=== PATIENT | female | born 1960 | race Caucasian/White ===

== ENCOUNTER 2021-03-16 19:40 | Observation (INO) ==
[2021-03-16] MEDS ORDERED: ACETAMINOPHEN 1,000 MG/100 ML VIAL IV STA (20:51)
[2021-03-16] MEDS ORDERED: SODIUM CHLORIDE 0.9% 1000ML 1,000 ML IV ONE (20:51)
[2021-03-16 21:15] LABS: Basophils # (auto) 0.02 K/uL (0-0.2); Basophils % (auto) 0.2 %; Eosinophils # (auto) 0.09 K/uL (0-0.5); Eosinophils % (auto) 0.9 %; Hematocrit (blood only) 44.9 % (37-47); Hemoglobin 15.2 g/dL (12.0-16.0); Immature Granulocytes # (auto) 0.02 K/uL (0.00-0.02); Immature Granulocytes % (auto) 0.2 %; Lymphocytes # (auto) 2.06 K/uL (1.2-3.4); Lymphocytes % (auto) 20.5 %; Mean Corpuscular Hemoglobin 30.6 pg (25-34); Mean Corpuscular Hgb Conc 33.9 g/dL (32-36); Mean Corpuscular Volume 90.5 fL (80-100); Mean Platelet Volume 9.4 fL (7.4-10.4); Monocytes # (auto) 0.73 K/uL (0.11-0.59); Monocytes % (auto) 7.3 %; Neutrophils # (auto) 7.14 K/uL (1.4-6.5); Neutrophils % (auto) 70.9 %; Platelet Count 338 K/uL (130-400); RDW Coefficient of Variation 13.2 % (11.5-14.5); RDW Standard Deviation 43.6 fL (36.4-46.3); Red Blood Count 4.96 M/uL (4.2-5.4); White Blood Count 10.06 K/uL (4.8-10.8)
[2021-03-16 21:37] LABS: Albumin Level 4.1 gm/dl (3.4-5.0); BUN Creatinine Ratio 13.7 (10-20); Bilirubin Direct 0.2 mg/dl (0-0.2); Calcium 9.2 mg/dl (8.5-10.1); Creatinine Clr Calc Pharmacy 75.7 ml/min; Est GFR (African American) 74.6 ml/min; Est GFR (Non-African American) 64.4 ml/min; Potassium 3.8 mmol/L (3.5-5.1)
[2021-03-16 21:40] LABS: Albumin Globulin Ratio 1.1 (0.9-2); Bilirubin,Total 0.8 mg/dl (0.2-1); Globulin 3.9 gm/dl (2.5-4.0)
[2021-03-16 22:26] LABS: Appearance Urine Clear (Clear); Bacteria Urine Automated Negative (Negative); Bilirubin Urine Negative (Negative); Blood Urine Negative (Negative); Color Urine Yellow; Epithelial Cell Urine Auto 20-30 /lpf (0-5); Glucose Urine UA Negative (Negative); Ketones Urine Trace (Negative); Leukocyte Esterase Urine Trace (Negative); Nitrite Urine Negative (Negative); Protein Urine Negative (Negative); RBC Urine Automated 0-4 /hpf (0-4); Specific Gravity Urine 1.015 (1.000-1.030); Urobilinogen Urine Negative (Negative)
[2021-03-16] MEDS ORDERED: OPTIRAY 320 100ml IV ONE (22:33)
[2021-03-16] MEDS ORDERED: cefOXitin 2,000 MG/60 ML BAG IV STA (23:21)
--- NOTE | 2021-03-17 00:18 | Surgery Consultation ---
Date of Consultation March 17, 2021 Assessment & Plan (1) Acute appendicitis with localized peritonitis: pt is a 60 year-old female who presents to ER with one day history RLQ pain, IMP: acute appendicitis, plan, I recommend to do laparoscopic appendectomy, possible open, D/W benefits, risk and alternatives of the surgery, the risks - infection, bleeding, abscess, injury other organs, incisional hernia, bowel obstruction, pt understood, she agrees with the surgery, I answered all questions, pre-op antibiotic, C)VID-19 test, Present on Admission?: Yes History of Present Illness History of Present Illness CC: RLQ pain HPI: pt is a 60 year-old female who presents to ER with one day history RLQ pain, the pain is located at RLQ, 8/10, with some nausea, no vomiting, pt denies fever, no diarrhea, pt had gastric bypass 20 years ago, pt had CT scan at ER- diagnosis- acute appendicitis, Allergies Allergy/AdvReac Type Severity Reaction Status Date / Time sulfamethoxazole AdvReac Intermediate Vomiting Verified 03/16/21 21:47 [From Bactrim] trimethoprim [From Bactrim] AdvReac Intermediate Vomiting Verified 03/16/21 21:47 Home Medications Medication Instructions Recorded Confirmed Type biotin 1,000 mcg PO DAILY 03/16/21 03/16/21 History calcium carbonate-vitamin D3 1 tab PO DAILY 03/16/21 03/16/21 History [Caltrate 600 plus D] cholecalciferol (vitamin D3) 50 mcg PO DAILY 03/16/21 03/16/21 History [Vitamin D3] cyanocobalamin (vitamin B-12) 1,000 mcg SUBLINGUAL DAILY 03/16/21 03/16/21 History [Vitamin B-12] multivit with min-folic acid 200 tab PO DAILY 03/16/21 03/16/21 History [Adult Multivitamin Gummies] Patient History Social History Smoking Status: Never smoker Feels Safe at Home: Yes Review of Systems Review of Systems: All systems reviewed & are unremarkable except as noted in HPI & below Constitutional: as per Subjective / HPI obesity Eyes: as per Subjective / HPI Ear, Nose, Mouth, Throat: as per Subjective / HPI Respiratory: as per Subjective / HPI Cardiovascular: as per Subjective / HPI Gastrointestinal: as per Subjective / HPI gastric bypass 20 years ago Genitourinary: as per Subjective / HPI Musculoskeletal: as per Subjective / HPI Integumentary: as per Subjective / HPI Neurologic: as per Subjective / HPI Psychiatric: as per Subjective / HPI Endocrine: as per Subjective / HPI Hematologic / Lymphatic: as per Subjective / HPI Allergy / Immunological: as per Subjective / HPI Physical Exam Constitutional: WD/WN, vitals as above well developed and well nourished Eyes: PERRL, conjunctivae normal, anicteric sclerae ENMT: external ear and nose normal, oropharynx normal Neck: trachea midline, no thyromegaly Respiratory: normal respiratory effort, lungs clear to auscultation normal respiratory effort Cardiovascular: RRR, no murmur, no edema Rate/Rhythm: regular rate and regular rhythm Heart Sounds: normal S1 and normal S2 Gastrointestinal (Abdomen): Percussion/Palpation: + abdomen tender, + guarding and abdomen soft tenderness at RLQ, rebound pain -, no distend, BS + Musculoskeletal: no cyanosis or clubbing, extremities motor strength 5/5 Skin: no rashes, warm and dry Neurologic: awake Psychiatric: Orientation: alert and oriented x 3 Results & Data ([facility]) Vital Signs (Past 12 Hours) Vital Signs Temp Pulse Pulse Resp BP BP Pulse Ox 03/16/21 23:47 63 20 155/102 H 99 03/16/21 22:00 67 18 151/95 H 99 03/16/21 20:58 74 18 154/97 H 98 03/16/21 20:52 87 18 97 03/16/21 19:53 36.7 C 100 H 18 148/112 H 94 Laboratory Results Abnormal lab results 03/16/21 03/16/21 03/16/21 Range/Units 20:49 20:49 22:08 Neut # (Auto) 7.14 H (1.4-6.5) K/uL Todd # (Auto) 0.73 H (0.11-0.59) K/uL Alkaline Phosphatase 130 H (45-117) U/L Urine Ketones Trace H (Negative) Ur Leukocyte Esterase Trace H (Negative) Urine WBC (Auto) 5-10 H (0-5) /hpf U Epithel Cells (Auto) 20-30 H (0-5) /lpf Diagnostic Findings CT scan- acute appendicitis,
--- NOTE | 2021-03-17 00:18 | History & Physical Bridge Note ---
Date of Service March 17, 2021 History & Physical Bridge Note I have examined the patient, reviewed the History & Physical and in the interval since the performance of the History & Physical I have noted the following changes of clinical significance: no changes noted
[2021-03-17] MEDS ORDERED: fentaNYL citrate 100 MCG/2 ML VIAL ONE (01:07)
[2021-03-17] MEDS ORDERED: BUPIVACAINE 0.5 % 5 MG/1 ML MPF 30ML VIAL ONE (01:08)
[2021-03-17] MEDS ORDERED: SUCCINYLCHOLINE CHLORIDE 20 MG/ML 10 ML VIAL IV ONE (01:09)
[2021-03-17] MEDS ORDERED: BACITRACIN OINT 15 GM TUBE ONE (01:09)
[2021-03-17] MEDS ORDERED: LIDOCAINE 1% LOCAL 20 ML VIAL ONE (01:09)
[2021-03-17] MEDS ORDERED: GLYCOPYRROLATE 0.2 MG/ML VIAL ONE (01:10)
[2021-03-17] MEDS ORDERED: LIDOCAINE 2% 2 ML VIAL/AMP(20MG/ML) INFIL ONE (01:10)
[2021-03-17] MEDS ORDERED: ROCURONIUM BROMIDE 10 MG/ML 5 ML VIAL IV ONE (01:10)
[2021-03-17] MEDS ORDERED: DEXAMETHASONE SOD INJ 4 MG/ML VIAL ONE (01:10)
[2021-03-17] MEDS ORDERED: NEOSTIGMINE METHYLSULFATE 1 MG/ML 10ML VIAL ONE (01:10)
[2021-03-17] MEDS ORDERED: ONDANSETRON INJ 2 MG/ML 2 ML VIAL ONE (01:10)
[2021-03-17] MEDS ORDERED: ONDANSETRON INJ 2 MG/ML 2 ML VIAL IV PRN ×2 (01:21→03:18)
[2021-03-17] MEDS ORDERED: ePHEDrine sulfate 50 MG/ML AMP IV PRN (01:21)
[2021-03-17] MEDS ORDERED: LABETALOL HCL IV 5 MG/ML 20ML IV PRN (01:21)
[2021-03-17] MEDS ORDERED: fentaNYL citrate 100 MCG/2 ML VIAL IV PRN (01:21)
[2021-03-17] MEDS ORDERED: HYDROmorphone INJ 1 MG/ML SYRINGE IV PRN ×2 (01:21→04:36)
[2021-03-17] MEDS ORDERED: MEPERIDINE HCL 25 MG/ML CARP/VIAL IV PRN (01:21)
[2021-03-17] MEDS ORDERED: PHENYLEPHRINE 100MCG/ML 5ML SYR IV PRN (01:21)
[2021-03-17] MEDS ORDERED: ATROPINE SULFATE 0.1 MG/ML 10ML SYR IV PRN (01:21)
--- NOTE | 2021-03-17 01:31 | Anesthesiology Consultation ---
Date of Service March 17, 2021 The patient has no chest pain or sob and has good functional capacity. I discussed that she had some EKG abnormalities and should follow up with her primary care physician to which she agreed. Assessment & Plan (1) Encounter for pre-operative examination: Chart Review Chart Review: Acceptable Risk for Surgery and Patient NOT seen in Pre Admission Testing Consults Requested none History Surgery Operation Date: 03/17/21 02:00 Proposed Procedures p Laparoscopic Appendectomy - Alexy Balderas MD Height/Weight Height: 5 ft 6 in Weight: 100.8 kg Allergies Allergy/AdvReac Type Severity Reaction Status Date / Time sulfamethoxazole AdvReac Intermediate Vomiting Verified 03/16/21 21:47 [From Bactrim] trimethoprim [From Bactrim] AdvReac Intermediate Vomiting Verified 03/16/21 21:47 nsaids AdvReac Intermediate Uncoded 03/17/21 01:32 Medications Home Medications Medication Instructions Recorded Confirmed Last Taken biotin 1,000 mcg PO DAILY 03/16/21 03/16/21 03/16/21 calcium carbonate-vitamin D3 1 tab PO DAILY 03/16/21 03/16/21 03/16/21 [Caltrate 600 plus D] cholecalciferol (vitamin D3) 50 mcg PO DAILY 03/16/21 03/16/21 03/16/21 [Vitamin D3] cyanocobalamin (vitamin B-12) 1,000 mcg SUBLINGUAL DAILY 03/16/21 03/16/21 03/16/21 [Vitamin B-12] multivit with min-folic acid 200 tab PO DAILY 03/16/21 03/16/21 03/16/21 [Adult Multivitamin Gummies] Past Medical History Medical History Obesity Past Surgical History Surgical History H/O gastric bypass Social History Smoking Status: Never smoker Physical Exam Vital Signs Last Vital Signs Temp 36.7 C 03/16/21 19:53 Pulse 63 03/16/21 23:47 Resp 20 03/16/21 23:47 BP 155/102 H 03/16/21 23:47 Pulse Ox 99 03/16/21 23:47 Testing Laboratory Results 03/16/21 20:49 03/16/21 20:49 Urine Color Yellow 03/16/21 22:08 Urine Appearance Clear (Clear) 03/16/21 22:08 Urine pH 6.0 (4.5-7.5) 03/16/21 22:08 Ur Specific [place] 1.015 (1.000-1.030) 03/16/21 22:08 Urine Protein Negative (Negative) 03/16/21 22:08 Urine Glucose (UA) Negative (Negative) 03/16/21 22:08 Urine Ketones Trace (Negative) H 03/16/21 22:08 Urine Nitrite Negative (Negative) 03/16/21 22:08 Ur Leukocyte Esterase Trace (Negative) H 03/16/21 22:08 Urine WBC (Auto) 5-10 /hpf (0-5) H 03/16/21 22:08 Urine RBC (Auto) 0-4 /hpf (0-4) 03/16/21 22:08 U Hyaline Cast (Auto) 1-5 /lpf (0-5) 03/16/21 22:08 U Epithel Cells (Auto) 20-30 /lpf (0-5) H 03/16/21 22:08 Urine Bacteria (Auto) Negative (Negative) 03/16/21 22:08 Electrocardiogram Date: 03/17/21 Normal sinus rhythm with sinus arrhythmia,rate 69, inferior infarct age undetermined, cannot rule out anterior infarct
--- NOTE | 2021-03-17 03:10 | Post Operative Brief Note ---
Immediate Post Op Note v1 Date of Surgery March 17, 2021 Pre & Post Diagnosis Operation Date: 03/17/21 02:00 Pre-Op Diagnosis: Acute appendicitis Post-Op Diagnosis: Acute appendicitis I identified the patient and participated in the time-out.: Yes Procedure Operation Date: 03/17/21 02:00 Actual Procedures p Laparoscopic Appendectomy(Not Applicable) - Alexy Balderas MD Surgeon Alexy Balderas MD Creative Developer manager surgical Estimated Blood Loss 10 Findings Consistent with Post-Op Diagnosis acute appendicitis, with gangrene Fluids 1000ml Specimens appendix Anesthesia Type General Complications none Disposition Accompanied Patient To Recovery: No Disposition: Recovery Room Overlapping Procedure I was immediately available: during the entire case.
--- NOTE | 2021-03-17 04:03 | Anesthesiology Progress Note ---
Date of Service March 17, 2021 Anesthesia Post Procedure Vital Signs Vital Signs: Temp Pulse Pulse Resp BP BP Pulse Ox 03/17/21 03:55 55 L 19 146/100 H 98 03/17/21 03:50 55 L 20 158/88 H 99 03/17/21 03:45 61 17 146/96 H 97 03/17/21 03:35 36.7 C 67 19 151/84 H 100 03/17/21 03:25 79 20 159/88 H 100 03/16/21 23:47 63 20 155/102 H 99 03/16/21 22:00 67 18 151/95 H 99 03/16/21 20:58 74 18 154/97 H 98 03/16/21 20:52 87 18 97 03/16/21 19:53 36.7 C 100 H 18 148/112 H 94 Pain Intensity Abdomen: Pain Intensity: 2 Transfer of Care Handoff Completed per policy Notes Mental Status: alert / awake / arousable Patient Amnestic to Procedure: Yes Nausea / Vomiting: adequately controlled Pain: adequately controlled Airway Patency, RR, SpO2: stable & adequate BP & HR: stable & adequate Hydration State: stable & adequate Anesthetic Complications: no major complications apparent and Pt Satisfied with anesthetic care
[2021-03-17] MEDS ORDERED: oxyCODONE/ACETAMINOPHEN 5mg/325mg TAB PO PRN (04:36)
[2021-03-17] MEDS ORDERED: LACTATED RINGER'S 1,000 ML IV SCH (04:36)
--- NOTE | 2021-03-17 05:43 | Emergency Department Note ---
Impression & Plan Acute appendicitis with localized peritonitis, Right lower quadrant abdominal pain, Nausea ED Provider Note NAME: LOVE ROSEN AGE: 60 SEX: F ARRIVES VIA: Walk-In INFORMANT: Patient, ED PROVIDER(S): Rustam Gomez MD CHIEF COMPLAINT: RLQ abdominal pain. PLAN: Disposition Admit: MEDICAL DECISION MAKING: The patient is a pleasant 60-year-old woman the patient who presents to the emergency department for worsening right lower quadrant pain since yesterday after eating ice cream. She reports nausea but denies vomiting. She denies any fevers, chills, cough, congestion, urinary. Denies any known COVID-19 exposures. On arrival the patient is uncomfortable no acute distress, afebrile stable vital signs. She appears clinically dry. She has moderate right lower quadrant tenderness without guarding or rebound. WBC, H/H and platelets within normal limits. Chemistry without metabolic acidosis. Electrolytes and STDs unremark able. Lipase is not elevated. UA without convincing evidence of infection. COVID-[address] of the abdomen pelvis was performed and per preliminary stat rad report demonstrated appendicitis. Cefoxitin ordered. Case was discussed with general surgery on-call, Dr. Balderas who evaluated the patient at the bedside and will admit for further treatment/OR. Patient was updated on findings and was in agreement with the plan. Triage Nursing notes reviewed and agree them. Prior medical records reviewed Vital Signs: reviewed and remarkable for no significant abnormalities Differential diagnosis: Appendicitis, ovarian cyst, ovarian torsion, ectopic , TOA, PID, infections, diverticulitis, UTI, obstruction, mesenteric ischemia, aortic pathology, inflammatory bowel disease, renal colic, PUD, pancreatitis, biliary pathology, hernia, volvulus, constipation, as well as other pathologies. ER treatment provided: See below. Diagnostics interpreted by me: Cardiac Monitoring: An order for continuous cardiac monitoring was placed and demonstrated Laboratory studies: See below Imaging studies: [facility]RAD Preliminary Findings Only See Final Report For Complete Findings CT ABDOMEN & PELVIS With Contrast: Appendicitis. The inflamed appendix measures 13 mm. No abscess. Gastric bypass. Radiologist: Kiley Mtz M.D. Study ready at 22:42 and initial results transmitted at 22:56 Consultation(s): Dr. Balderas, general surgery. HPI: The patient is a pleasant 60-year-old woman the patient who presents to the emergency department for worsening right lower quadrant pain since yesterday after eating ice cream. She reports nausea but denies vomiting. She denies any fevers, chills, cough, congestion, urinary. Denies any known COVID-19 exposures. ROS: See above HPI for pertinent positives & negatives. A total of 10 systems reviewed and were otherwise negative. PAST MEDICAL HISTORY:See Below PAST SURGICAL HISTORY:See Below FAMILY HISTORY:See Below SOCIAL HISTORY:See Below HOME MEDICATIONS:See Below ALLERGIES:See Below VITALS:See Below PHYSICAL EXAMINATION: GENERAL: Awake, alert, uncomfortable-appearing, in no distress HENT: Normocephalic, atraumatic. Oropharynx with dry mucous membranes and otherwise unremarkable. EYES: Normal conjunctiva. Sclera non-icteric. NECK: Supple. No nuchal rigidity. FROM. No JVD. RESPIRATORY: Clear to auscultation. CARDIAC: Regular rate, normal rhythm. Extremities warm and well perfused. Pulses equal. ABDOMEN: Soft, non-distended. Moderate RLQ tenderness to palpation. No rebound or guarding. No masses. RECTAL: Deferred. MUSCULOSKELETAL: Chest examination reveals no tenderness. The back is symmetrical on inspection without obvious abnormality. There is no CVA tenderness to palpation. No joint edema. LOWER EXTREMITIES: Calves are equal size bilaterally and non-tender. No edema. No discoloration. NEURO: Normal sensorium. No sensory or motor deficits noted. SKIN: No rash or jaundice noted. Rustam Gomez MD Past Med/Surg History Medical History Acute appendicitis with localized peritonitis Obesity Social History Smoking Status: Never smoker Hx Alcohol Use: No Hx Substance Use: No Preferred Language: [place] Citizen Communication Ability: Effective Special Machine Stitcher Required: No Beliefs That Will Affect Care: None Current Living Situation: Family Other Information That Helps Us Care for You: No Feels Safe at Home: Yes Safety Concerns: Feels Safe At This Time Assistive Devices: Glasses Allergies Allergies Allergy/AdvReac Type Severity Reaction Status Date / Time NSAIDS (Non-Steroidal AdvReac Intermediate Unknown Verified 03/17/21 02:25 Anti-Inflamma sulfamethoxazole AdvReac Intermediate Vomiting Verified 03/16/21 21:47 [From Bactrim] trimethoprim [From Bactrim] AdvReac Intermediate Vomiting Verified 03/16/21 21:47 Home Meds Home Medications Medication Instructions Recorded Confirmed Adult Multivitamin Gummies 200 tab PO DAILY 03/16/21 03/16/21 Caltrate 600 plus D 1 tab PO DAILY 03/16/21 03/16/21 biotin 1,000 mcg PO DAILY 03/16/21 03/16/21 cholecalciferol (vitamin D3) 50 mcg PO DAILY 03/16/21 03/16/21 [Vitamin D3] cyanocobalamin (vitamin B-12) 1,000 mcg SUBLINGUAL DAILY 03/16/21 03/16/21 Previous Rx's Medication Instructions Recorded ciprofloxacin HCl 500 mg PO BID #10 tab 03/17/21 metronidazole 500 mg PO TID #15 tab 03/17/21 oxycodone-acetaminophen [Percocet] 1 tab PO Q6H PRN #5 tab 03/17/21 Results & Data (ED) Vital Signs Vital Signs - 24 hr 03/16/21 19:53 03/16/21 20:52 03/16/21 20:58 Temperature 36.7 C Temperature Source Temporal Artery Scan Pulse Rate 100 H 87 Pulse Rate [Apical] 74 Pulse Rhythm Regular Pulse Rhythm [Apical] Regular Pulse Strength [Apical] Normal Respiratory Rate 18 18 18 Respiratory Effort / Characteristics Non-Labored Spontaneous Non-Labored Respiratory Depth Normal Normal Respiratory Pattern Regular Regular Blood Pressure 148/112 H Blood Pressure [Right Arm] 154/97 H Blood Pressure Mean 124 Blood Pressure Mean [Right Arm] 116 Blood Pressure Position Sitting Blood Pressure Position [Right Arm] Sitting Pulse Oximetry 94 97 98 Oxygen Delivery Method Room Air Room Air Room Air Sepsis Recent Fever Within 48 Hours No Sepsis New/Unexplained Change in Mental Status No Sepsis Action Taken by Nursing No Action Required 03/16/21 22:00 03/16/21 23:47 Temperature Temperature Source Pulse Rate Pulse Rate [Apical] 67 63 Pulse Rhythm Pulse Rhythm [Apical] Regular Pulse Strength [Apical] Normal Respiratory Rate 18 20 Respiratory Effort / Characteristics Non-Labored Respiratory Depth Normal Respiratory Pattern Regular Blood Pressure Blood Pressure [Right Arm] 151/95 H 155/102 H Blood Pressure Mean Blood Pressure Mean [Right Arm] 113 119 Blood Pressure Position Blood Pressure Position [Right Arm] Lying Pulse Oximetry 99 99 Oxygen Delivery Method Room Air Room Air Sepsis Recent Fever Within 48 Hours Sepsis New/Unexplained Change in Mental Status Sepsis Action Taken by Nursing Laboratory Data Attestation: I reviewed the patient's lab results. Result diagrams: 03/16/21 20:49 03/16/21 20:49 Lab Results 03/16/21 03/16/21 03/16/21 Range/Units 20:49 20:49 22:08 WBC 10.06 (4.8-10.8) K/uL RBC 4.96 (4.2-5.4) M/uL Hgb 15.2 (12.0-16.0) g/dL Hct 44.9 (37-47) % MCV 90.5 (80-100) fL MCH 30.6 (25-34) pg MCHC 33.9 (32-36) g/dL RDW Std Deviation 43.6 (36.4-46.3) fL RDW Coeff of Rosa 13.2 (11.5-14.5) % Plt Count 338 (130-400) K/uL MPV 9.4 (7.4-10.4) fL Immature Gran % (Auto) 0.2 % Neut % (Auto) 70.9 % Lymph % (Auto) 20.5 % Jones % (Auto) 7.3 % Eos % (Auto) 0.9 % Baso % (Auto) 0.2 % Neut # (Auto) 7.14 H (1.4-6.5) K/uL Lymph # (Auto) 2.06 (1.2-3.4) K/uL Jones # (Auto) 0.73 H (0.11-0.59) K/uL Eos # (Auto) 0.09 (0-0.5) K/uL Baso # (Auto) 0.02 (0-0.2) K/uL Immature Gran # (Auto) 0.02 (0.00-0.02) K/uL Sodium 140 (136-145) mmol/L Potassium 3.8 (3.5-5.1) mmol/L Chloride 107 (98-107) mmol/L Carbon Dioxide 25 (21-32) mmol/L Anion Gap 8.0 (3-11) BUN 13 (7-18) mg/dl Creatinine 0.97 (0.6-1.2) mg/dl Est Cr Clr Drug Dosing 75.7 ml/min Est GFR ( Amer) 74.6 ml/min Est GFR (Non-Af Amer) 64.4 ml/min BUN/Creatinine Ratio 13.7 (10-20) Glucose 99 (70-99) mg/dl Calcium 9.2 (8.5-10.1) mg/dl Total Bilirubin 0.8 (0.2-1) mg/dl Direct Bilirubin 0.2 (0-0.2) mg/dl AST 15 (15-37) U/L ALT 24 (12-78) U/L Alkaline Phosphatase 130 H (45-117) U/L Total Protein 8.0 (6.4-8.2) gm/dl Albumin 4.1 (3.4-5.0) gm/dl Globulin 3.9 (2.5-4.0) gm/dl Albumin/Globulin Ratio 1.1 (0.9-2) Lipase 123 (73-393) U/L Urine Color Yellow Urine Appearance Clear (Clear) Urine pH 6.0 (4.5-7.5) Ur Specific [place] 1.015 (1.000-1.030) Urine Protein Negative (Negative) Urine Glucose (UA) Negative (Negative) Urine Ketones Trace H (Negative) Urine Blood Negative (Negative) Urine Nitrite Negative (Negative) Urine Bilirubin Negative (Negative) Urine Urobilinogen Negative (Negative) Ur Leukocyte Esterase Trace H (Negative) Urine WBC (Auto) 5-10 H (0-5) /hpf Urine RBC (Auto) 0-4 (0-4) /hpf U Hyaline Cast (Auto) 1-5 (0-5) /lpf U Epithel Cells (Auto) 20-30 H (0-5) /lpf Urine Bacteria (Auto) Negative (Negative) COVID-19 Eval Order SARS-CoV-2 (PCR) (Negative) 03/16/21 03/16/21 Range/Units 23:00 23:00 WBC (4.8-10.8) K/uL RBC (4.2-5.4) M/uL Hgb (12.0-16.0) g/dL Hct (37-47) % MCV (80-100) fL MCH (25-34) pg MCHC (32-36) g/dL RDW Std Deviation (36.4-46.3) fL RDW Coeff of Rosa (11.5-14.5) % Plt Count (130-400) K/uL MPV (7.4-10.4) fL Immature Gran % (Auto) % Neut % (Auto) % Lymph % (Auto) % Jones % (Auto) % Eos % (Auto) % Baso % (Auto) % Neut # (Auto) (1.4-6.5) K/uL Lymph # (Auto) (1.2-3.4) K/uL Jones # (Auto) (0.11-0.59) K/uL Eos # (Auto) (0-0.5) K/uL Baso # (Auto) (0-0.2) K/uL Immature Gran # (Auto) (0.00-0.02) K/uL Sodium (136-145) mmol/L Potassium (3.5-5.1) mmol/L Chloride (98-107) mmol/L Carbon Dioxide (21-32) mmol/L Anion Gap (3-11) BUN (7-18) mg/dl Creatinine (0.6-1.2) mg/dl Est Cr Clr Drug Dosing ml/min Est GFR ( Amer) ml/min Est GFR (Non-Af Amer) ml/min BUN/Creatinine Ratio (10-20) Glucose (70-99) mg/dl Calcium (8.5-10.1) mg/dl Total Bilirubin (0.2-1) mg/dl Direct Bilirubin (0-0.2) mg/dl AST (15-37) U/L ALT (12-78) U/L Alkaline Phosphatase (45-117) U/L Total Protein (6.4-8.2) gm/dl Albumin (3.4-5.0) gm/dl Globulin (2.5-4.0) gm/dl Albumin/Globulin Ratio (0.9-2) Lipase (73-393) U/L Urine Color Urine Appearance (Clear) Urine pH (4.5-7.5) Ur Specific [place] (1.000-1.030) Urine Protein (Negative) Urine Glucose (UA) (Negative) Urine Ketones (Negative) Urine Blood (Negative) Urine Nitrite (Negative) Urine Bilirubin (Negative) Urine Urobilinogen (Negative) Ur Leukocyte Esterase (Negative) Urine WBC (Auto) (0-5) /hpf Urine RBC (Auto) (0-4) /hpf U Hyaline Cast (Auto) (0-5) /lpf U Epithel Cells (Auto) (0-5) /lpf Urine Bacteria (Auto) (Negative) COVID-19 Eval Order Covid19 at [facility] SARS-CoV-2 (PCR) NEGATIVE (Negative) Administered Medications Discontinued Medications Bacitracin (Bacitracin Oint 15 Gm Tube) Confirm Administered Dose 45 appln .ROUTE .STK-MED ONE Stop: 03/17/21 01:10 Last Admin: 03/17/21 02:52 Dose: Not Given Documented by: [id number] Bupivacaine HCl (Bupivacaine 0.5 % 5 Mg/1 Ml Mpf 30ml Vial) Confirm Administered Dose 30 ml .ROUTE .STK-MED ONE Stop: 03/17/21 01:09 Last Admin: 03/17/21 02:53 Dose: 12 ml Documented by: [id number] Cyanocobalamin (Cyanocobalamin 500 Mcg Tablet (Vitamin B-12)) 1,000 mcg PO DAILY ANDREA Stop: 04/16/21 08:59 Last Admin: 03/17/21 09:02 Dose: Not Given Documented by: [id number] Sodium Chloride (Nss 1000ml) 1,000 mls @ 999 mls/hr IV .[id number] ONE Stop: 03/16/21 21:51 Last Infusion: 03/16/21 22:11 Dose: 0 mls/hr Documented by: [id number] Admin: 03/16/21 21:03 Dose: 999 mls/hr Documented by: [id number] Acetaminophen (Ofirmev) 1,000 mg in 100 mls @ 400 mls/hr IV NOW STA Stop: 03/16/21 21:05 Last Infusion: 03/16/21 21:39 Dose: 0 mls/hr Documented by: [id number] Admin: 03/16/21 21:03 Dose: 400 mls/hr Documented by: [id number] Cefoxitin Sodium (Mefoxin) 2,000 mg in 60 mls @ 100 mls/hr IV NOW STA Stop: 03/16/21 23:56 Last Infusion: 03/17/21 00:33 Dose: 0 mls/hr Documented by: [id number] Admin: 03/16/21 23:35 Dose: 100 mls/hr Documented by: [id number] Lactated Ringer's (Lr) 1,000 mls @ 80 mls/hr IV .[id number] ANDREA Stop: 04/16/21 04:35 Last Infusion: 03/17/21 11:51 Dose: 0 mls/hr Documented by: [id number] Infusion: 03/17/21 07:15 Dose: 80 mls/hr Documented by: [id number] Infusion: 03/17/21 06:21 Dose: 0 mls/hr Documented by: [id number] Admin: 03/17/21 06:21 Dose: 80 mls/hr Documented by: [id number] Cefoxitin Sodium 2,000 mg/ (Dextrose) 60 mls @ 100 mls/hr IV Q6H ANDREA Stop: 03/27/21 05:59 Last Infusion: 03/17/21 12:30 Dose: 0 mls/hr Documented by: [id number] Admin: 03/17/21 11:51 Dose: 100 mls/hr Documented by: [id number] Infusion: 03/17/21 07:15 Dose: 0 mls/hr Documented by: [id number] Admin: 03/17/21 06:21 Dose: 100 mls/hr Documented by: [id number] Ioversol (Optiray 320 100ml) 91 ml IV ONCE ONE Stop: 03/16/21 22:34 Last Admin: 03/16/21 22:33 Dose: 91 ml Documented by: [id number] Lidocaine HCl (Lidocaine Hcl 1% 20 Ml Vial) Confirm Administered Dose 20 ml .ROUTE .STK-MED ONE Stop: 03/17/21 01:10 Last Admin: 03/17/21 02:53 Dose: 13 ml Documented by: [id number] Multivitamins/Folic Acid/Vitamin C (Multivitamin Chewable Tab) 1 tab PO DAILY ANDREA Stop: 04/16/21 08:59 Last Admin: 03/17/21 09:02 Dose: Not Given Documented by: [id number] Multivitamins/Minerals (Calcium 600mg + Vit D 400 Iu Tab) 1 tab PO DAILY ANDREA Stop: 04/16/21 08:59 Last Admin: 03/17/21 09:02 Dose: Not Given Documented by: [id number] Oxycodone/Acetaminophen (Oxycodone/Acetaminophen 5mg/325mg Tab) 1 tab PO Q4H PRN PRN Reason: Pain Stop: 03/31/21 04:35 Last Admin: 03/17/21 07:50 Dose: 1 tab Documented by: [id number] Vitamin D (Cholecalciferol 1,000 Units 25 Mcg Tab) 2,000 units PO DAILY ANDREA Stop: 04/16/21 08:59 Last Admin: 03/17/21 09:02 Dose: Not Given Documented by: [id number] Discharge Plan Visit Data Chief Complaint: Abdominal Pain Stated Complaint: back/side pain ED Provider: Rustam Gomez Discharge Problem: Acute appendicitis with localized peritonitis, Right lower quadrant abdominal pain, Nausea Patient Disposition: Admitted As Inpatient Discharge Instructions Interventions: ED Discharge Assessment Last Done: 03/17/21 01:30 Discharge Problem: Acute appendicitis with localized peritonitis Qualifiers: Appendicitis gangrene presence: unspecified whether gangrene present Appendicitis perforation presence: without perforation Appendicitis abscess presence: without abscess Qualified Code(s): K35.30 - Acute appendicitis with localized peritonitis, without perforation or gangrene
[2021-03-17] MEDS: cefOXitin 2,000 MG in DEXTROSE 5% 50 ML IV SCH ×2 (06:21→11:51)
[2021-03-17] MEDS ORDERED: ACETAMINOPHEN 325 MG TAB PO PRN (08:02)
--- NOTE | 2021-03-17 08:40 | CT Scan Report ---
CT SCAN OF THE ABDOMEN AND PELVIS WITH IV CONTRAST CLINICAL HISTORY: Right lower quadrant abdominal pain. COMPARISON STUDY: No priors. TECHNIQUE: Following the IV administration of 91 cc of Optiray 320, CT scan of the abdomen and pelvi s is performed from the lung bases to the proximal femora. Images are reviewed in the axial, sagittal , and coronal planes. IV contrast was administered without complication. A dose lowering technique wa s utilized adhering to the principles of ALARA. CT DOSE: 1101.38 mGy.cm FINDINGS: Lung bases: The heart is normal in size and without pericardial effusion. The lung bases are clear. Liver: The contrast-enhanced liver is normal in size, contour, and attenuation. There is no intrahepa tic biliary ductal dilatation. The hepatic veins and portal veins are patent. Gallbladder: Unremarkable. Spleen: Normal in size and attenuation. Pancreas: Unremarkable. Adrenal glands: Unremarkable. Kidneys: The contrast enhanced kidneys are normal in size and without hydronephrosis. The kidneys enh ance symmetrically. Abdominal vasculature: The abdominal aorta is normal in course and caliber. Stomach and bowel: Postoperative changes consistent with a history of Jose-en-Y gastric bypass surger y. No bowel obstruction is seen. The appendix is distended and fluid-filled measuring up to 1.4 cm i n diameter. The appendiceal wall is thickened and hyperemic, and there is periappendiceal inflammatio n and trace fluid. A large calcified appendicolith is seen at the base of the appendix on image #[id number]. Findings are consistent with acute appendicitis. No organized fluid collection is seen to suggest ab scess. Peritoneum: There is no intraperitoneal free air or abdominal ascites. There is a small fat-containin g umbilical hernia. Lymphadenopathy: None. Pelvic viscera: The bladder, uterus, and adnexa are normal as visualized. Skeletal structures: No lytic or blastic lesions are seen. IMPRESSION: 1. Findings are consistent with acute appendicitis. There is no evidence of abscess or perforation. 2. There is postoperative change from Jose-en-Y gastric bypass surgery. No bowel obstruction is seen. 3. Additional findings as above. ACT 112: Negative or not required by law. Electronically signed by: Mikhail Dong M.D. 03/17/2021 8:39 AM
[2021-03-17] MEDS ORDERED: MULTIVITAMIN CHEWABLE TAB PO SCH (09:00)
[2021-03-17] MEDS ORDERED: CHOLECALCIFEROL 1,000 UNITS 25 MCG TAB PO SCH (09:00)
[2021-03-17] MEDS ORDERED: CALCIUM 600MG + VIT D 400 IU TAB PO SCH (09:00)
[2021-03-17] MEDS ORDERED: NON-FORMULARY MEDICATION (Biotin 1,000 mcg Tablet,Chewable) PO SCH (09:00)
[2021-03-17] MEDS ORDERED: CYANOCOBALAMIN 500 MCG TABLET (VITAMIN B-12) PO SCH (09:00)
--- NOTE | 2021-03-17 09:52 | Operative Report (OR) ---
DATE OF PROCEDURE: 03/17/2021. PREOPERATIVE DIAGNOSIS: Acute appendicitis. POSTOPERATIVE DIAGNOSES: Acute appendicitis with gangrene. PROCEDURE: Laparoscopic appendectomy. SURGEON: Alexy BRANTLEY MD. ANESTHESIA: General. ESTIMATED BLOOD LOSS: About 10 mL FINDINGS: Acute appendicitis with gangrene. COMPLICATIONS: None. INDICATION OF THE PROCEDURE: This is a 60-year-old female who presented to the ED with 1-day history of right lower quadrant pain. The patient had a CT scan diagnosis of acute appendicitis. I recomme nd to do a laparoscopic appendectomy, possible open. I did talk to the patient about the benefits, t he risks, alternate procedure, I indicated the risks may include, but not limited to, such as bleedin g, infection, abscess, injury to other organs, DVT, incisional hernia, bowel obstruction. The patien t understands. She signed informed consent, and I answered all questions. DETAILS OF PROCEDURE: After I identified the patient and verified the procedure and we brought the p atient to the OR and put the patient on the supine position. The patient received SCD bilaterally to prevent DVT. Also, the patient received 2 grams of cefoxitin IV for prophylactic antibiotic. The p atient received general anesthesia without difficulty. The abdomen was appropriately draped in routi ne sterile fashion. After timeout, I injected the local anesthesia by using 1% lidocaine mixed with 0.5% Marcaine just above the umbilicus. Then made a small incision just above the umbilical, opened t he fascia and opened the perineum and under direct vision put the Alma trocar and connected the CO2 to create a pneumoperitoneum at a flow rate of 6 liters per minute, pressure of not more than 40 mmH g. Once we get a nice pneumoperitoneum, we put the camera in and looked around the abdomen, shows no rmal finding on the small bowel and large bowel and some free yellow fluid from the pelvic area. Appe ndix was significantly large with inflammation and with gangrene. Confirmed diagnosis of acute append icitis and may put another two 5 mm trocar on the left lower quadrant where we suctioned out all of t he pelvic floor and then we used the grasper to hold the appendix and used the Harmonic to take down the appendiceal and rechecked and no active bleeding. Used a 45 mm Endo-BRICE stapler for transection on the base of appendix. The staple line was intact. No leak, no active bleeding. Then we removed the appendix through the catch bag. Then we reinserted the Alma trocar in and connected CO2 to cre ate a pneumoperitoneum. We again looked around the abdomen. Staple line was intact and no active bl eeding. Then, we removed all trocars under direct vision, no active bleeding from the trocar site. Pneumoperitoneum was released then I closed the umbilical incision, fascial layer using 0 Vicryl figu re-of-eight x2, closed the subcutaneous layer by using 2-0 Vicryl interrupted. I closed the skin by using 4-0 Vicryl continuous running, closed another two 5 mm trocar sites of the skin only by using 4 -0 Vicryl. Then we put the dressing on, the patient tolerated the procedure well. All the instrumen t, needle, sponge count were correct x2 at the end of the case. The patient was transferred to the r ecovery room in stable condition. Specimen was sent to pathology. After the procedure I did talk to the patient about OR finding and procedure we did, patient taisha obrien. Job ID: [id number]
--- NOTE | 2021-03-17 12:10 | Electrocardiogram Report ---
Test Reason : Blood Pressure : / mmHG Vent. Rate : 069 BPM Atrial Rate : 069 BPM P-R Int : 162 ms QRS Dur : 074 ms QT Int : 400 ms P-R-T Axes : 041 009 012 degrees QTc Int : 428 ms Normal sinus rhythm with sinus arrhythmia No previous ECGs available Confirmed by Jose Alfredo Chaudhari ([id number]) on 03/17/2021 12:09:31 PM Referred By: REFERRED SELF Confirmed By:Pelon Chaudhari
--- NOTE | 2021-03-17 14:45 | Discharge Summary ---
Date of Service March 17, 2021 Admission HPI Per Admitting Provider pt is a 60 year-old female who presents to ER with one day history RLQ pain, the pain is located at RLQ, 8/10, with some nausea, no vomiting, pt denies fever, no diarrhea, pt had gastric bypass 20 years ago, pt had CT scan at ER- diagnosis- acute appendicitis, Principal Diagnosis acute appendicitis Discharge Exam Constitutional WD/WN, vitals as above + obese; no acute distress and not ill appearing Respiratory normal respiratory effort; no respiratory distress and no labored breathing Gastrointestinal (Abdomen) Inspection/Auscultation: abdomen normal to inspection and + abdominal surgical incision (covered with dressings, bloody drainage on left incision dressing); abdomen not distended Percussion/Palpation: + abdomen tender (mild at incision sites, appropriate postop) and abdomen soft; no guarding and abdomen not rigid Skin no rashes, warm and dry Psychiatric A+Ox3, euthymic affect Discharge Data Allergies Allergy/AdvReac Type Severity Reaction Status Date / Time NSAIDS (Non-Steroidal AdvReac Intermediate Unknown Verified 03/17/21 02:25 Anti-Inflamma sulfamethoxazole AdvReac Intermediate Vomiting Verified 03/16/21 21:47 [From Bactrim] trimethoprim [From Bactrim] AdvReac Intermediate Vomiting Verified 03/16/21 21:47 Consultations 03/16/21 23:21 Consult General Surgery Stat 03/17/21 00:22 ED Decision to Admit Stat Procedures Performed Operation Date: 03/17/21 02:00 Actual Procedures p Laparoscopic Appendectomy(Not Applicable) - Alexy Balderas MD Ordered Studies 03/16/21 20:53 CT abd pelvis IV con only Urgent Hospital Course (1) Acute appendicitis with localized peritonitis: Patient was taken to operating room for laparoscopic appendectomy. Patient found to have acute gangrenous appendicitis. Patient tolerated procedu re well and was transferred to recovery then to medical/surgical floor for postoperative care. Diet was advanced to clear liquids, PO Percocet with IV Dilaudid prn pain, activity as tolerated, IV Cefoxitin was continued postop. POD # 0 , vitals stable, afebrile, postop pain minimal and controlled, tolerated some clear liquids. Patient was given postoperative instructions and Rx sent to her pharmacy for Percocet prn pain and 5 days of po cipro and flagyl. Total Time Total Time Spent Total Time Spent (In Minutes): 20 Total Time Includes: Examination of the Patient, Discharge Planning and Medication Reconciliation Discharge Plan Discharge Items Patient Disposition: Home - Self-Care Reason For Visit: ACUTE ABDOMINAL PAIN Discharge Diagnosis: acute gangrenous appendicitis Activity: Per Instructions section Non-emergency contact: Surgeon Call non-emergency contact if: your pain is not controlled, your pain is worsening, your pain is concerning for you, you have a fever, your temperature is above 101, your wound has increased redness, your wound has increased drainage and your wound pain has increased Follow-up/Referrals: Omar Perez [Primary Care Provider] - Alexy Balderas MD [Physician] - 04/01/21 1:00 pm (Appointment at [facility]) Diet: Regular Diet Comment: increase diet slowly as tolerated, small frequent meals advised Addtl Attending Provider Instructions: Post-Surgical ~Discharge Instructions Activity Recommendations: - lifting limitation: (20 pounds for 4 weeks), - exercise/sex/sports limit: (nonstrenuous for 2 weeks), - driving or machine use limit: (none for 1 week or until pain free and no longer taking narcotic pain medication), - Shower/bathe limit: (may shower in 4 days) Diet: - Resume previous diet SPECIAL CARE INSTRUCTIONS: - May shower in 4 days, sponge bath and wash hair in meantime. after 4 days, remove outer dressings and let water run over incisions and pat dry. - Leave steri strips on for one week and then remove. - Call the surgeon's office with any questions or concerns - - (ex. temperature higher than 101 degrees F, excessive bleeding or pain). MEDICATIONS: - Resume previous medications unless instructed otherwise by your surgeon. - May alternate extra strength Tylenol and ibuprofen as needed for mild pain -650 mg Tylenol every 6 hours - Ibuprofen 600 mg every 6 hours with food - Percocet 1 every 4 hours, as needed for moderate severe pain - Recommend stool softener daily (Esyo-jbe-gourjff Colace) while taking narcotic pain medication to prevent constipation. - Take antibiotics as recommended FOLLOW UP VISIT: - If not already scheduled, please call the office to schedule a two week follow-up appointment. Office number Pending Studies at Discharge: Yes Stand-Alone Forms: My [facility], Work/School Release, Smoking Cessation Medications and DC Order Prescriptions: New oxycodone-acetaminophen [Percocet] 5-325 mg tablet 1 tab PO Q6H PRN (Reason: pain) Qty: 5 RF: 0 ciprofloxacin HCl 500 mg tablet 500 mg PO BID Qty: 10 RF: 0 metronidazole 500 mg tablet 500 mg PO TID Qty: 15 RF: 0 Continued cyanocobalamin (vitamin B-12) 1,000 mcg Tablet, Sublingual 1,000 mcg SUBLINGUAL DAILY RF: 0 cholecalciferol (vitamin D3) [Vitamin D3] 50 mcg (2,000 unit) Capsule 50 mcg PO DAILY RF: 0 Adult Multivitamin Gummies 200 mcg Tablet,Chewable 200 tab PO DAILY RF: 0 Caltrate 600 plus D 600 mg (1,500 mg)-800 unit Tablet,Chewable 1 tab PO DAILY RF: 0 biotin 1,000 mcg Tablet,Chewable 1,000 mcg PO DAILY RF: 0 Discharge Orders: Discharge Order (Routine); Ordered 03/17/21 Ordered By: Meme David/Other Patient Handouts: Managing Post-Op Pain at Home ..., Appendectomy Laparoscopic Dc Admission Data Admit Date/Time: 03/17/21 03:19 Attending Provider: Alexy Balderas Admit Provider: Alexy Balderas Primary Care Provider: Omar Perez Other Providers: Alexy Balderas Other Interventions: Discharge Summary Assessment (RN) Last Done: 03/17/21 13:29
== END 2021-03-17 14:56 | disposition home or self-care (01) ==
LOC: ED 19:40 → OR 03-17 01:32 → 3E 03-17 01:32